=== PATIENT | male | born 1955 | race Caucasian/White ===

== ENCOUNTER → 2017-07-02 | Outpatient (CLI) | payer BC ==
[~2017-07-02] MED LIST: ALBU90OI61 INH; ASPI325 PO; CALCAVITD PO; CLIN150 PO; CLIN1TS; CODGUAEL PO; DOCU100 PO; ERGO400 PO; EXTRA STRENGTH500 MG PO; FERR325 PO; Glucosamine Ch1 EAC4 PO; HYDACE5 PO; IBUP200 PO; KETO10 PO; METO25 PO; MORP15ER PO; MULVIT PO; OXYC5 PO; PRED5EL PO; Prednisone10 MG PO; RXHYDACE PO; TRAM50 PO; Vitamin B Comple1 EA PO
[2017-07-02 11:10] LABS: BASOPHILS ABSOLUTE AUTO 0.04 K/mm3 (0.00-0.23); BASOPHILS PERCENT AUTO 1 % (0-2); EOSINOPHILS ABSOLUTE AUTO 0.08 K/mm3 (0.00-0.68); EOSINOPHILS PERCENT AUTO 1 % (0-6); Hemoglobin 16.5 g/dL (13.5-17.5); IMMATURE GRAN ABSOLUTE AUTO 0.02 K/mm3 (0.00-0.10); IMMATURE GRAN PERCENT AUTO 0 % (0-1); LYMPHOCYTES PERCENT AUTO 25 % (21-46); MONOCYTES ABSOLUTE AUTO 0.37 K/mm3 (0.16-1.47); MONOCYTES PERCENT AUTO 7 % (4-13); Mean Corpuscular HGB 32.5 pg (26.0-34.0); Mean Corpuscular HGB Conc 34.4 g/dL (31.5-36.5); Mean Corpuscular Volume 95 fL (80-100); Mean Platelet Volume 11.2 fL (9.1-12.4); NEUTROPHILS PERCENT AUTO 66 % (41-73); Platelet Count 254 K/mm3 (150-400); RDW Coefficient Variation 13.6 % (11.7-14.2); Red Blood Cell Count 5.07 M/mm3 (4.30-5.90); White Blood Cell Count 5.61 K/mm3 (4.00-11.30)
[2017-07-02 11:25] LABS: Alanine Aminotransfer (ALT/SGP 34 U/L (12-78); Albumin, Blood 4.1 g/dL (3.4-5.0); Albumin/Globulin Ratio 1.4 (0.8-1.8); Alk Phos 69 U/L (40-126); Anion Gap 12 mmol/L (6-16); Aspartate Aminotrans (AST/SGOT 23 U/L (12-37); Bilirubin, Total 0.3 mg/dL (0.1-1.0); Blood Urea Nitrogen 23 mg/dL (8-24); Bun/Creatinine Ratio 26.7 (12.0-20.0); CHOL/HDL RATIO 4.3; CO2, Blood 24 mmol/L (21-32); Calcium, Blood 9.2 mg/dL (8.5-10.1); Chloride, Blood 106 mmol/L (98-108); Cholesterol 196 mg/dL (50-200); Creatinine, Blood 0.86 mg/dL (0.60-1.20); Free Thyroxine 1.36 ng/dL (0.70-1.60); Glomerular Filtration Rate >60 (60-); Glucose, Blood 96 mg/dL (70-99); HDL Cholesterol 46 mg/dL (>39); Low Density Lipoprotein Chol 140 mg/dL (<110); Potassium, Blood 4.5 mmol/L (3.5-5.5); Sodium, Blood 142 mmol/L (136-145); Thyroid Stimulating Hormone 0.669 uIU/mL (0.360-4.800); Total Protein, Blood 7.1 g/dL (6.4-8.2); Triglycerides 52 mg/dL (30-160); Very Low Density Lipoprot Chol 10 mg/dL (6-32)
[2017-07-02 12:08] LABS: PSA, %Free 17.1 %; PSA, Free 0.885 ng/mL
[2017-07-02 12:11] LABS: Triiodothyronine, Free 2.98 pg/mL (2.18-3.98)
== END | disposition home or self-care (01) ==
LOC: LAB EV 10:55
PROVIDERS: Physician Assistant
DX: E05.90 Thyrotoxicosis, unspecified without thyrotoxic crisis or storm (principal); R53.83 Other fatigue
CPT/HCPCS: 80053; 80061; 84153; 84154; 84439; 84443; 84481; 85025

== ENCOUNTER 2017-08-18 08:52 | Day surgery (SDC) | payer BC | END 2017-08-18 22:55 | disposition home or self-care (01) | LOC: MOI RAD 08:52 → RAD 15:00 → MOI MRI 15:00 → MOI RAD 15:00 | PROC: 3E0U33Z Introduction of Anti-inflammatory into Joints, Percutaneous Approach (ICD-10-PCS; principal; 2017-08-18) | PROC: BP38ZZZ Magnetic Resonance Imaging (MRI) of Right Shoulder (ICD-10-PCS; principal; 2017-08-18) | DX: S46.011A Strain of muscle(s) and tendon(s) of the rotator cuff of right shoulder, initial encounter (principal); M75.41 Impingement syndrome of right shoulder | CPT/HCPCS: 23350; 73222; 77002; A9577; Q9967 ==

== ENCOUNTER 2018-06-10 07:00 | Day surgery (SDC) | payer BC ==
[~2018-06-10] VITALS: Ht 172.7 cm; Wt 103.0 kg
[~2018-06-10 07:00] MED LIST changes: +MULTI VITAMIN1 EACH PO
== END 2018-06-10 10:00 | disposition home or self-care (01) ==
LOC: ORSCSDS 07:00
PROVIDERS: Otolaryngology
PROC: 0CBPXZZ Excision of Tonsils, External Approach (ICD-10-PCS; principal; 2018-06-10 08:15)
DX: J36 Peritonsillar abscess (principal); E05.90 Thyrotoxicosis, unspecified without thyrotoxic crisis or storm; E78.00 Pure hypercholesterolemia, unspecified
CPT/HCPCS: 88304; J0330; J1100; J2250; J3010; J7120

== ENCOUNTER 2018-08-26 08:30 | Day surgery (SDC) | payer MEDICARE ==
[~2018-08-26] VITALS: Ht 172.7 cm; Wt 102.1 kg
[~2018-08-26 08:30] MED LIST changes: +CLOB.05TO TOP
--- NOTE | 2018-08-26 09:29 | NUR ---
08/26/18 0929 Daphne Esparza 1IV MISS IN RH BY MAURISIO VEIN BLEW 1 IV MISS BY MAURISIO VALVE 1 IV MISS IN LW BY ROLDAN NICOLE 1 GOOD IV IN LAC BY MESSI PT TOW
== END 2018-08-26 10:50 | disposition home or self-care (01) ==
LOC: ORSCSDS 08:30
PROVIDERS: Internal Medicine Gastroenterology
PROC: 0DBP8ZX Excision of Rectum, Via Natural or Artificial Opening Endoscopic, Diagnostic (ICD-10-PCS; principal; 2018-08-26 09:45)
PROC: 0DBH8ZX Excision of Cecum, Via Natural or Artificial Opening Endoscopic, Diagnostic (ICD-10-PCS; principal; 2018-08-26 09:45)
DX: Z12.11 Encounter for screening for malignant neoplasm of colon (principal); Z86.010 Personal history of colon polyps; D12.0 Benign neoplasm of cecum; D12.8 Benign neoplasm of rectum; K57.30 Diverticulosis of large intestine without perforation or abscess without bleeding; F17.210 Nicotine dependence, cigarettes, uncomplicated; E66.9 Obesity, unspecified; Z68.35 Body mass index [BMI] 35.0-35.9, adult
CPT/HCPCS: 88305; J2704; J7120

== ENCOUNTER 2023-08-04 09:14 | Day surgery (SDC) | payer OTHER ==
[~2023-08-04] VITALS: Ht 172.7 cm; Wt 102.0 kg
[~2023-08-04 09:14] MED LIST changes: +Atropine Sulfate 0.1 MG/ML 10ML SYR ONE; +Glycopyrrolate 0.2 MG/ML 1MLVIAL ONE; +Hyoscyamine Sulfate 0.5 MG/ML 1ML Amp ONE; +Lactated Ringer's 1,000 ML IV ONE; +Lidocaine 2% 5 ML SDV ONE; +Lidocaine HCl/Pf 1% 5 ML VIAL ONE; +Methylene Blue 1% 100 MG/10 ML VIAL ONE; +Ondansetron HCl 2 MG / ML 2ML Vial ONE; +ePHEDrine Sulfate 50 MG/ML 1ML Injection ONE; +propofoL 50 ML IV ONE
[2023-08-04] MEDS ORDERED: MILLIPRED DP5 M2 (09:36)
[2023-08-04] MEDS ORDERED: LEVSOD100 PO (09:36)
[2023-08-04] MEDS ORDERED: Lactated Ringer's 1,000 ML IV ONE (10:27)
[2023-08-04 12:20] VITALS: BP 124/84
== END 2023-08-04 12:10 | disposition home or self-care (01) ==
LOC: ORSCSDS 09:14
PROVIDERS: Internal Medicine Gastroenterology
PROC: 0DBK8ZX Excision of Ascending Colon, Via Natural or Artificial Opening Endoscopic, Diagnostic (ICD-10-PCS; principal; 2023-08-04 10:30)
DX: Z12.11 Encounter for screening for malignant neoplasm of colon (principal); Z86.010 Personal history of colon polyps; K63.5 Polyp of colon; K57.30 Diverticulosis of large intestine without perforation or abscess without bleeding; Z79.899 Other long term (current) drug therapy
CPT/HCPCS: 88305; J0461; J1980; J2001; J2405; J2704; J7120; Q9968